=== PATIENT | female | born 1985 | race African-American/Black ===

== ENCOUNTER 2017-09-09 12:49 | Emergency (ER) | payer MEDICAID ==
[~2017-09-09] VITALS: Ht 160 cm; Wt 83.2 kg
[2017-09-09] MEDS ORDERED: IBUPROFEN 600 MG TABLET PO ONE (14:30)
[2017-09-09 15:11] VITALS: BP 108/68
== END 2017-09-09 15:16 | disposition home or self-care (01) ==
LOC: EMS 12:50
DX: S33.9XXA Sprain of unspecified parts of lumbar spine and pelvis, initial encounter (principal); D49.6 Neoplasm of unspecified behavior of brain; F17.210 Nicotine dependence, cigarettes, uncomplicated; F12.10 Cannabis abuse, uncomplicated; X50.0XXA Overexertion from strenuous movement or load, initial encounter; Y93.89 Activity, other specified; Y92.512 Supermarket, store or market as the place of occurrence of the external cause; Y99.0 Civilian activity done for income or pay
CPT/HCPCS: 99283; 99406

== ENCOUNTER 2017-12-05 08:52 | Emergency (ER) | payer SELFPAY ==
[~2017-12-05] VITALS: Ht 157.5 cm; Wt 81.8 kg
[2017-12-05] MEDS ORDERED: KETOROLAC TROMETHAMINE 60 MG/2 ML VIAL IM ONE (10:00)
[2017-12-05 10:43] VITALS: BP 111/79
== END 2017-12-05 11:35 | disposition home or self-care (01) ==
LOC: EMS 08:54
DX: M54.41 Lumbago with sciatica, right side (principal); F12.90 Cannabis use, unspecified, uncomplicated; F17.210 Nicotine dependence, cigarettes, uncomplicated; Z88.8 Allergy status to other drugs, medicaments and biological substances
CPT/HCPCS: 96372; 99283; 99406; J1885

== ENCOUNTER 2018-11-26 08:59 | Emergency (ER) | payer SELFPAY ==
[~2018-11-26] VITALS: Ht 160 cm; Wt 90.9 kg
[2018-11-26] MEDS ORDERED: KETOROLAC TROMETHAMINE 60 MG/2 ML VIAL IM ONE (09:45)
[2018-11-26 11:20] VITALS: BP 112/68
== END 2018-11-26 11:32 | disposition home or self-care (01) ==
LOC: EMS 09:01
DX: S83.91XA Sprain of unspecified site of right knee, initial encounter (principal); F17.210 Nicotine dependence, cigarettes, uncomplicated; F12.90 Cannabis use, unspecified, uncomplicated; G89.29 Other chronic pain; Z88.8 Allergy status to other drugs, medicaments and biological substances; X58.XXXA Exposure to other specified factors, initial encounter; Y93.89 Activity, other specified; Y92.89 Other specified places as the place of occurrence of the external cause; Y99.8 Other external cause status
CPT/HCPCS: 29505; 73562; 96372; 99283; 99406; J1885